=== PATIENT | female | born 1995 | race Caucasian/White ===

== ENCOUNTER → 2019-12-12 | Outpatient (CLI) | payer BC, SELFPAY ==
[2019-12-12 09:24] VITALS: BMI 23.8
[2019-12-17 14:14] LABS: HPV Reflexed? NOT INDICATED
== END | disposition home or self-care (01) ==
LOC: LABSPEC 15:48
PROVIDERS: PCP Family Medicine; Referring Provider Nurse Practitioner Women's Health; Visit Provider Nurse Practitioner Women's Health
DX: Z12.4 Encounter for screening for malignant neoplasm of cervix (principal)
CPT/HCPCS: 88175; G0145

== ENCOUNTER → 2020-02-21 08:08 | Outpatient (CLI) | payer BC, SELFPAY ==
[2019-12-12 09:24] VITALS: BMI 23.8
[2020-02-21 09:11] LABS: Estradiol 95.5 pg/mL; Prolactin 12.3 ng/mL; Thyroid Stim Hormone (TSH) 2.44 uIU/mL (0.358-3.74)
== END ==
PROVIDERS: Nurse Practitioner Women's Health; PCP Family Medicine; Referring Provider Obstetrics & Gynecology; Visit Provider Obstetrics & Gynecology
DX: Z13.29 Encounter for screening for other suspected endocrine disorder (principal); N92.6 Irregular menstruation, unspecified
CPT/HCPCS: 36415; 82670; 84146; 84443

== ENCOUNTER → 2020-03-10 11:40 | Outpatient (CLI) | payer BC, SELFPAY ==
[2019-12-12 09:24] VITALS: BMI 23.8
[2020-03-11 09:54] LABS: Progesterone Level 6.21 ng/mL (See Comment)
== END ==
PROVIDERS: PCP Family Medicine; Referring Provider Nurse Practitioner Women's Health; Visit Provider Nurse Practitioner Women's Health
DX: N92.6 Irregular menstruation, unspecified (principal)
CPT/HCPCS: 36415; 84144

== ENCOUNTER → 2020-03-18 13:14 | Outpatient (CLI) | payer BC, SELFPAY ==
[2019-12-12 09:24] VITALS: BMI 23.8
--- NOTE | 2020-03-18 13:15 | RAD_ITS ---
STUDY: HYSTEROSALPINGOGRAM. REASON FOR EXAM: Female, 24 years old. Infertility FLUOROSCOPY TIME (if supplied): ( 20 seconds ) minutes/seconds. 3 images were obtained. TECHNIQUE: A hysterosalpingogram was performed by the cigar bander. Imaging was provided. COMPARISON: None. FINDINGS: The uterus is unremarkable. The fallopian tubes were opacified. They are widely patent. RAD/Salpingogram IMPRESSION: Normal hysterosalpingogram. Electronically Signed: Daquan Vyas, at 14:56 EDT , Service support ,
--- NOTE | 2020-03-19 07:28 | OP.PCM_ITS ---
Report of Operation Date of Procedure: 03/19/20 Pre-Operative Diagnosis: infertility Description of Surgical Findings:: Preop diagnosis: Infertility Postop diagnosis: Same plus bilateral tubal patency Procedure: Hysterosalpingogram Surgeon: Caro Joyner Implantable devices: None Complications: None Findings: Bilateral tubal patency and normal uterine cavity Operative details: Patient was taken to the x-ray room and was placed on the x- ray table and was in the dorsal lithotomy position. Speculum was placed in the vagina and the cervix prepped with Betadine and the HSG catheter was easily introduced into the uterus and speculum removed. Radiologist was brought in and while pushing radiopaque dye into the uterus via the HSG catheter the radiologist took multiple images and views and confirmed bilateral tubal patency seen. No gross uterine filling defects or abnormalities were seen. All instruments removed from the vagina and the uterus without complication. Patient tolerated the procedure well. Multi Select Codes - Urinary/Genital Urinary/Genital CPT Codes: 02846 HSG/SIS
== END ==
PROVIDERS: PCP Family Medicine; Referring Provider Obstetrics & Gynecology; Visit Provider Obstetrics & Gynecology
DX: N97.9 Female infertility, unspecified (principal)
CPT/HCPCS: 58340; 74740; Q9967

== ENCOUNTER → 2021-01-09 10:07 | Outpatient (CLI) | payer SELFPAY ==
[2020-08-21 09:46] VITALS: BMI 28.3
[2021-01-09 11:08] LABS: Estradiol 52.3 pg/mL; Follicle Stimulating Hormone 21.4 mIU/mL
[2021-01-16 08:14] LABS: Anti-Mullerian Hormone,Serum 0.078 ng/mL (.)
== END ==
PROVIDERS: PCP Family Medicine
DX: Z31.41 Encounter for fertility testing (principal)
CPT/HCPCS: 36415; 82670; 83001; 83516

== ENCOUNTER → 2023-11-08 | Outpatient (CLI) | payer SELFPAY ==
[2023-11-08 17:12] LABS: hCG Titer Quant., Serum 516 mIU/mL (1-3)
== END | disposition home or self-care (01) ==
LOC: LAB 16:18
PROVIDERS: PCP Family Medicine; Referring Provider Obstetrics & Gynecology; Visit Provider Obstetrics & Gynecology
DX: N91.2 Amenorrhea, unspecified (principal)
CPT/HCPCS: 36415; 84702

== ENCOUNTER → 2023-11-10 | Outpatient (CLI) | payer SELFPAY ==
[2023-11-10 13:36] LABS: hCG Titer Quant., Serum 1333 mIU/mL (1-3)
== END | disposition home or self-care (01) ==
LOC: LAB 12:11
PROVIDERS: PCP Family Medicine; Referring Provider Obstetrics & Gynecology; Visit Provider Obstetrics & Gynecology
DX: N91.2 Amenorrhea, unspecified (principal)
CPT/HCPCS: 36415; 84702

== ENCOUNTER → 2023-12-01 | Outpatient (CLI) | payer SELFPAY ==
[2023-12-01 11:03] LABS: Absolute Lymphocyte Count 2.76 X10^3/uL (0.83-4.51); Absolute Neutrophil Count 3.4 X10^3/uL (2.0-7.7); Basophil# 0.03 X10^3/uL; Basophil% 0.4 % (0-1); Eosinophil# 0.09 X10^3/uL; Eosinophils% 1.3 % (0-5); Hematocrit 38.9 % (37-47); Hemoglobin 12.8 g/dL (12.0-15.0); Lymphocyte # 2.76 X10^3/ul (0.83-4.51); Lymphocyte % 40.3 % (19-41); Mean Corp Hgb Conc 32.9 g/dL (32-36); Mean Corpuscular Hgb 30.3 pg (27.0-32.0); Mean Platelet Vol. 10.9 fl (6.2-12.0); Monocyte# 0.57 X10^3/uL; Monocyte% 8.3 % (0-10); NRBC Flagged by Analyzer 0 % (0-5); Neutrophil # 3.38 X10^3/uL (2.7-7.7); Neutrophil % 49.4 % (47-70); Platelet Count 308 K/mm3 (150-450); RBC Distribution Width CV 12.3 % (11.6-14.6); RBC Distribution Width SD 41.1 fl (35.1-43.9); Red Blood Count 4.23 M/mm3 (4.2-5.4); White Blood Count 6.9 K/mm3 (4.4-11.0)
[2023-12-01 12:01] LABS: HIV - WCH Non-Reactive (Nonreactive); Hepatitis B Surface Antigen Non-Reactive (Nonreactive); Hepatitis C Antibody Non-Reactive (Nonreactive); Rubella IgG Reactive (Nonreactive); Syphilis Antibodies Non-reactive
[2023-12-02 13:08] LABS: SJOGREN'S Anti-SS-A test < 0.2 AI (0.0-0.9); SJOGREN'S Anti-SS-B test < 0.2 AI (0.0-0.9)
[2023-12-03 06:08] LABS: Chlamydia By Nucleic Acid AMP Negative (Negative); Gonococcus By Nucleic Acid AMP Negative (Negative)
[2023-12-04 15:07] LABS: Anti-Cardiolipin Ab, IgG, Qn < 9 GPL U/mL (0-14); Anti-Cardiolipin Ab, IgM, Qn 11 MPL U/mL (0-12); Beta-2-Glycoprotein I IgA <9 (0-25); Beta-2-Glycoprotein I IgG <9 (0-20); Beta-2-Glycoprotein I IgM <9 (0-32); Dilute Prothrombin Time (dPT) 32.6 sec (0.0-47.6); Dilute Russell Viper Venom 37.2 sec (0.0-47.0); Interpretation Comment: (.); PTT-LA 34.1 sec (0.0-43.5); Thrombin Time 18.1 sec (0.0-23.0)
[2023-12-06 20:14] LABS: HPV Reflexed? NOT INDICATED
== END | disposition home or self-care (01) ==
PROVIDERS: Advanced Practice Midwife; PCP Family Medicine; Referring Provider Obstetrics & Gynecology; Visit Provider Obstetrics & Gynecology
DX: O99.891 Other specified diseases and conditions complicating pregnancy (principal); M32.9 Systemic lupus erythematosus, unspecified; Z3A.00 Weeks of gestation of pregnancy not specified
CPT/HCPCS: 36415; 85025; 86146; 86147; 86235; 86703; 86762; 86780; 86803; 86850; 86900; 86901; 87086; 87340; 87491; 87591; 88175; G0145

== ENCOUNTER → 2024-01-19 | Outpatient (CLI) | payer SELFPAY ==
--- NOTE | 2024-01-19 14:01 | US_ITS ---
STUDY: SUPERFICIAL ULTRASOUND - RIGHT AXILLA REASON FOR EXAM: Female, 28 years old. right axillary mass TECHNIQUE: A superficial ultrasound was performed with real-time and static mendoza-scale imaging. COMPARISON: None. FINDINGS: Multiple longitudinal and transverse ultrasound images of the right axilla do not demonstrate a discrete solid or cystic mass or lymphadenopathy. US/Ext Non Vasc Limited/Soft Tiss IMPRESSION: Normal right axilla. Electronically Signed: Darion Kirk MD at 17:22 EDT ,
== END | disposition home or self-care (01) ==
PROVIDERS: Referring Provider Obstetrics & Gynecology; Visit Provider Obstetrics & Gynecology
DX: R22.30 Localized swelling, mass and lump, unspecified upper limb (principal)
CPT/HCPCS: 76882

== ENCOUNTER → 2024-04-19 | Outpatient (CLI) | payer SELFPAY ==
[2024-04-19 13:43] LABS: Glucose Challenge Gest 1H 50g 118 mg/dL (70-140)
== END | disposition home or self-care (01) ==
PROVIDERS: Nurse Practitioner Women's Health; Referring Provider Obstetrics & Gynecology; Visit Provider Obstetrics & Gynecology
DX: Z13.1 Encounter for screening for diabetes mellitus (principal); Z3A.20 20 weeks gestation of pregnancy
CPT/HCPCS: 36415; 82950

== ENCOUNTER → 2024-05-02 | Outpatient (CLI) | payer SELFPAY ==
[2024-05-02 13:32] LABS: Absolute Lymphocyte Count 2.45 X10^3/uL (0.83-4.51); Basophil# 0.03 X10^3/uL; Basophil% 0.3 % (0-1); Eosinophil# 0.13 X10^3/uL; Eosinophils% 1.2 % (0-5); Hemoglobin 10.8 g/dL (12.0-15.0); Lymphocyte # 2.45 X10^3/ul (0.83-4.51); Lymphocyte % 23.2 % (19-41); Mean Corp Hgb Conc 32.7 g/dL (32-36); Mean Corpuscular Hgb 31.7 pg (27.0-32.0); Mean Corpuscular Volume 96.8 fL (81-99); Mean Platelet Vol. 10.9 fl (6.2-12.0); Monocyte# 0.74 X10^3/uL; NRBC Flagged by Analyzer 0 % (0-5); Neutrophil # 7.02 X10^3/uL (2.7-7.7); Neutrophil % 66.5 % (47-70); Platelet Count 272 K/mm3 (150-450); RBC Distribution Width CV 13.1 % (11.6-14.6); Red Blood Count 3.41 M/mm3 (4.2-5.4); White Blood Count 10.6 K/mm3 (4.4-11.0)
[2024-05-02 14:40] LABS: HIV - WCH Non-Reactive (Nonreactive); Syphilis Antibodies Non-reactive
== END | disposition home or self-care (01) ==
LOC: LAB 12:57
PROVIDERS: Referring Provider Nurse Practitioner Women's Health; Visit Provider Nurse Practitioner Women's Health
DX: Z34.92 Encounter for supervision of normal pregnancy, unspecified, second trimester (principal); Z3A.20 20 weeks gestation of pregnancy
CPT/HCPCS: 36415; 85025; 86703; 86780

== ENCOUNTER → 2024-06-11 | Outpatient (CLI) | payer SELFPAY | END | disposition home or self-care (01) | LOC: LABSPEC 11:15 | PROVIDERS: Referring Provider Advanced Practice Midwife; Visit Provider Advanced Practice Midwife | DX: O09.93 Supervision of high risk pregnancy, unspecified, third trimester (principal); Z3A.34 34 weeks gestation of pregnancy | CPT/HCPCS: 87077; 87081; 87186 ==

== ENCOUNTER → 2024-07-27 | Outpatient (CLI) | payer SELFPAY ==
[2024-07-27 12:17] LABS: Absolute Lymphocyte Count 1.63 X10^3/uL (0.83-4.51); Absolute Neutrophil Count 5.7 X10^3/uL (2.0-7.7); Basophil# 0.02 X10^3/uL; Basophil% 0.2 % (0-1); Eosinophil# 0.09 X10^3/uL; Eosinophils% 1.1 % (0-5); Hematocrit 30.8 % (37-47); Hemoglobin 9.8 g/dL (12.0-15.0); Lymphocyte # 1.63 X10^3/ul (0.83-4.51); Lymphocyte % 20.3 % (19-41); Mean Corp Hgb Conc 31.8 g/dL (32-36); Mean Corpuscular Hgb 30.6 pg (27.0-32.0); Mean Corpuscular Volume 96.3 fL (81-99); Mean Platelet Vol. 11.1 fl (6.2-12.0); Monocyte# 0.54 X10^3/uL; Monocyte% 6.7 % (0-10); NRBC Flagged by Analyzer 0 % (0-5); Platelet Count 320 K/mm3 (150-450); RBC Distribution Width CV 14.8 % (11.6-14.6); RBC Distribution Width SD 50.9 fl (35.1-43.9)
[2024-07-27 12:29] LABS: ALB/GLOB Ratio 0.6 RATIO (0.9-2.4); AST(SGOT) 12 U/L (15-37); Alanine Aminotransfer ALT/SGPT 47 U/L (13-56); Albumin, Serum 2.7 g/dL (3.2-5.0); Alkaline Phosphatase 156 U/L (45-117); Anion Gap 8 (5-15); BUN 9 mg/dL (7-18); BUN/Creat Ratio 11.2 RATIO (10-20); Calcium,Total 8.8 mg/dL (8.5-10.1); Chloride 111 mmol/L (98-107); EST Glomerular Filtration Rate 89 mL/min (>60); Est Glom Filt Rate - Afr Amer 108 mL/min (>60); Globulin 4.5 g/dL (2.2-4.2); Glucose 79 mg/dL (74-106); Potassium 3.6 mmol/L (3.5-5.1); Protein, Total 7.2 g/dL (6.4-8.2); Sodium Level 141 mmol/L (136-145)
== END | disposition home or self-care (01) ==
LOC: BWCLAB 09:47
PROVIDERS: Referring Provider Obstetrics & Gynecology; Visit Provider Obstetrics & Gynecology
DX: O99.013 Anemia complicating pregnancy, third trimester (principal); O14.20 HELLP syndrome (HELLP), unspecified trimester; Z3A.00 Weeks of gestation of pregnancy not specified
CPT/HCPCS: 36415; 80053; 85025

== ENCOUNTER → 2024-11-27 | Outpatient (CLI) | payer SELFPAY ==
--- NOTE | 2024-11-27 09:36 | US_ITS ---
PROCEDURE: BREAST LIMITED UNILATERAL 11/27/2024 REASON FOR EXAM: RIGHT BREAST LUMP TECHNIQUE: Targeted right breast ultrasound. Patient is presently . COMPARISON: None FINDINGS: Right breast ultrasound was targeted to the lower outer quadrant of the right breast.. The palpable lump corresponds to a 1.9 cm 1.9 cm x 1.3 cm predominantly cystic nodular density with irregular borders. This is at the 7 o'clock position of the breast at 6 cm from the nipple. Adjacent to this, there is evidence of an 8 mm x 9 mm x 6 mm hypoechoic nodule. Drainage is recommended for further evaluation. Low-level echoes are seen within it. There is also evidence US/Breast Limited Unilateral IMPRESSION: The palpable lump corresponds to a 1.9 cm 1.9 cm x 1.3 cm predominantly cystic nodular density with irregular borders as well as low-level echoes within it. Drainage is recommended. Adjacent to this, there is a 8 mm x 9 mm x 6 mm hypoechoic nodule. Biopsy recommended. Follow-up code: Biopsy Recommended. BI-RADS category 4. Reading Location: [place] [id number]
== END | disposition home or self-care (01) ==
PROVIDERS: PCP Physician Assistant; Referring Provider Advanced Practice Midwife; Visit Provider Advanced Practice Midwife
DX: N63.10 Unspecified lump in the right breast, unspecified quadrant (principal)
CPT/HCPCS: 76642

== ENCOUNTER → 2024-11-29 | Outpatient (CLI) | payer SELFPAY ==
--- NOTE | 2024-11-29 14:00 | FLU_PTH ---
PATIENT: ADITYA IGNACIO LOC: [facility] U#:[id number] AGE/SX: 29/F ROOM: RE11/29/[address]: Dr. Les Valentino MD : [id number] BED: DIS: 11/29/2024 SPEC #: [id number] RECD: 11/29/24 16:15 STATUS: KRISTYN REAgustín #: [id number] RAND: 11/29/24 14:[address]: Les Valentino DEPT: CYTOLOGY RECD BY: Ko Parikh ENTERED: 11/30/24 08:39 SP TYPE: Fluid OTHR DR: Dominick Decker PA-C Tissues: A - CYST Procedures: Special Stain Group II Surgery Specimen Level III Surgery Specimen Level IV Cytospin Fluid HEADER OPERATION: Right breast cyst PRE-OP DIAGNOSIS: Right breast cyst TISSUE SUBMITTED: A- Right breast cyst fluid for cytology DIAGNOSIS CYTOLOGY A. Right breast cyst, fine needle aspiration (cytospin and cellblock): * Atypical cells present - see Comment. * Inflammatory background with foamy macrophages and proteinaceous material. COMMENT: The clinical history of is noted. Lactational change can demonstrate cytologic atypia. Recommend clinical correlation. CYTOLOGY STUDY Slides are reviewed. CYTOLOGY GROSS A. Received is 3 ml of gia-edpyf-flagva fluid labeled with the patient's name and and designated per the requisition as Right breast cyst. Submitted for cytology and cell block preparation. Mr 11/30/2024 CPT: 86523, 68114
== END | disposition home or self-care (01) ==
LOC: LABSPEC 14:56
PROVIDERS: PCP Physician Assistant; Referring Provider Surgery; Visit Provider Surgery
DX: N60.01 Solitary cyst of right breast (principal)
CPT/HCPCS: 88108; 88304; 88305; 88313